=== PATIENT | male | born 1950 | race Caucasian/White ===

== ENCOUNTER 2017-10-27 13:06 | Inpatient (IN) | payer MEDICAID, OTHER ==
[~2017-10-27] VITALS: Ht 172.7 cm; Wt 68.0 kg
[2017-10-27 13:15] VITALS: BP 138/76
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
[2017-10-27] MEDS ORDERED: NACL 0.9% 1,000 ML IV ONE (13:55)
[2017-10-27] MEDS ORDERED: LORazepam 2 MG/ML VIAL IVP ONE (13:55)
[2017-10-27] MEDS ORDERED: LIDOCAINE 1% 500 MG/50 ML VIAL INJ SCH (13:55)
--- NOTE | 2017-10-27 14:05 | NUR ---
PT TO CT SCAN VIA [facility].
--- NOTE | 2017-10-27 14:22 | NUR ---
PT BACK FROM CT SCAN, NO CHNAGES IN CONDITION, NO COMPLIANTS AT THIS TIME. VSS. RESP EVEN AND UNLABORED, ON RA@98%.
[2017-10-27 14:36] LABS: BASOPHILS % (AUTO) 0.4 % (0.0-2.0); EOSINOPHILS % (AUTO) 0.1 % (0.0-4.0); HEMATOCRIT 38.5 % (36-52); HEMOGLOBIN 13.3 g/dL (12.0-18.0); MEAN CORPUSCULAR HEMOGLOBIN 33 pg (27-31); MEAN CORPUSCULAR HGB CONC 35 g/dL (33-37); MONOCYTES # (AUTO) 0.5 K/uL (0.8-1.0); MONOCYTES % (AUTO) 6.7 % (1.7-9.3); NEUTROPHILS # (AUTO) 5.4 K/uL (1.8-7.7); NEUTROPHILS % (AUTO) 78.8 % (42.2-75.2); PLATELET COUNT (AUTO) 187 K/uL (140-450); RED BLOOD CELL COUNT(AUTO) 4.09 MIL/uL (4.20-6.10); RED CELL DISTRIBUTION WIDTH 14.2 % (11.6-13.7); WHITE BLOOD COUNT (AUTO) 6.8 K/uL (4.8-10.8)
[2017-10-27 14:58] LABS: ALBUMIN 3.6 g/dL (3.4-5.0); ANION GAP 13.2 (8-16); CARBON DIOXIDE 22.4 mmol/L (21-32); CREATININE 0.4 mg/dL (0.7-1.3); POTASSIUM 3.6 mmol/L (3.5-5.1); TOTAL BILIRUBIN 0.6 mg/dL (0.0-1.0)
[2017-10-27 14:59] LABS: PROTHROMBIN TIME 9.5 secs (10.8-13.4)
--- NOTE | 2017-10-27 15:11 | NUR ---
PT WITH EYES CLOSED, IN NAD. RESP EVEN AND UNLBAORED, VSS. CLAUDIA SOLORZANO MD LAC REPAIR,LIDOCAINE AT BEDSIDE.
[2017-10-27] MEDS ORDERED: LORazepam 2 MG/ML VIAL IVP PRN (15:50)
[2017-10-27] MEDS ORDERED: MULTIVITAMIN-12 10 ML, THIAMINE 100 MG, MAGNESIUM SULFATE 50% 2,000 MG, FOLIC ACID 5 MG... IV ONE ×5 (15:50)
[2017-10-27] MEDS ORDERED: ACETAMINOPHEN 325 MG TAB PO PRN (15:50)
[2017-10-27] MEDS ORDERED: ONDANSETRON 4 MG/2 ML VIAL IVP PRN (15:50)
--- NOTE | 2017-10-27 16:02 | NUR ---
LAC REPAIR AT BEDSIDE BY DR HAIRSTON
--- NOTE | 2017-10-27 16:38 | NUR ---
Patient will be admitted to care of DR HERNANDEZ. Admited toTELE Will go to room. Belongings list completed. Report to .
--- NOTE | 2017-10-27 16:45 | NUR ---
ADMITTED PT FROM ER BY OPAL, RECEIVED REPORT FROM LEXA. PT AWAKE, ALERT BUT EPISODES OF CONFUSION. MUMBLING, ON ROOM AIR, NO S/S OF RESPIRATORY DISTRESS NOTED. PT HAS LACERATION TO FOREHEAD. WRAPPED WITH GAUZE. IV TO RIGHT FOREARM # 20, INTACT AND PATENT. PT ABLE TO MOVE ALL HIS EXTREMITIES WITH MILD WEAKNESS NOTED. ORIENTED PT ENVIRONMENT, CALL LIGHT IN REACH, HOB ELEVATED 30 DEGREES WITH LOW BED POSITION, MRSA NARES SWAB DONE, WILL CONTINUE TO MONITOR.
[2017-10-27 17:00] VITALS: BP 135/76
--- NOTE | 2017-10-27 17:30 | NUR ---
MADE CHARGE NURSE AWARE FOR THE IV "BANANA BAG" NOT GIVEN YET. PHARMACY LEFT, CHARGE NURSE WILL CALL [employer] ADMINISTRATOR.
[2017-10-27] MEDS: NACL 0.9% 1,000 ML IV SCH (18:00)
[2017-10-27] MEDS ORDERED: FOLIC ACID 5 MG/ML SYR ONE ×2 (18:04→18:06)
--- NOTE | 2017-10-27 18:10 | NUR ---
PT IS MORE AWAKE AT THIS MOMENT, FEED PT , PT ATE MODERATE AMOUNT OF FOOD, PT USE URINAL, HAD URINE TOTAL OUT PUT IN MY SHIFT 600 MLS.
[2017-10-27] MEDS ORDERED: MAGNESIUM SULFATE 50% 1000 MG/2 ML VIAL IV ONE (18:15)
[2017-10-27] MEDS ORDERED: THIAMINE 200 MG/2 ML VIAL ONE (18:17)
[2017-10-27] MEDS ORDERED: MULTIVITAMIN-12 10 ML VIAL IV ONE (18:19)
--- NOTE | 2017-10-27 19:20 | NUR ---
RECEIVED REPORT FROM DAY SHIFT NURSE AT PT BEDSIDE. PT IN STABLE CONDITION. PT IS ASLEEP. IV ACCESS IN R FA 20G WITH IVF RUNNING PER MD ORDERS. IV IS PATENT AND INTACT. PT IS ON RA. BANDAGE COVERING LACERATION TO L FOREHEAD. BRUISING TO LEFT EYE. BED IS LOCKED, LOW POSITION AND SIDE RAILS UP X2. BOARD UPDATED. CALL LIGHT WITHIN REACH. WILL CONTINUE TO MONITOR PT.
--- NOTE | 2017-10-27 20:33 | NUR ---
STARTED ORDERED BANANA BAG. PT ASLEEP BUT AROUSABLE. WILL CONTINUE TO MONITOR PT.
--- NOTE | 2017-10-27 23:10 | NUR ---
PT STILL ASLEEP IN BED. NO SIGNS OF DISTRESS. BANANA BAG STILL INFUSING. WILL CONTINUE TO MONITOR.
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
[2017-10-28] VITALS: BP_SYST 127; BP_SYST 151; BP_DIAS 75; BP_DIAS 79
[2017-10-28] MEDS: NACL 0.9% 1,000 ML IV SCH (01:50)
--- NOTE | 2017-10-28 02:23 | NUR ---
PT ASLEEP IN BED. NO SIGNS OR SYMPTOMS OF DISTRESS. WILL CONTINUE TO MONITOR PT.
--- NOTE | 2017-10-28 05:22 | NUR ---
PT NOW AWAKE IN BED WATCHING TV. NO SIGNS OF DISTRESS. PT HAS NO C/O PAIN. WILL CONTINUE TO MONITOR.
--- NOTE | 2017-10-28 07:11 | NUR ---
ENDORSED PT TO DAY SHIFT NURSE FOR CONTINUITY OF CARE. PT IN STABLE CONDITION.
--- NOTE | 2017-10-28 07:12 | NUR ---
RECEIVED REPORT FROM PM NURSE AT THE BEDSIDE. PT ALERT AND AWAKE. INTRODUCED SELF AND UPDATED BOARD OF PT. PT HAS IVF INFUSING AT 100ML/HR. IV ON RT AC 20 G. PT ADMITTED WITH DX OF ALCOHOL INTOXICATION. PER PM NURSE PT ADMINISTERED BANANA BAG ALREADY. NO SIGN OF DISTRESS NOTED. WILL CONTINUE TO MONITOR PT.
[2017-10-28 08:00] VITALS: BP 103/73
[2017-10-28 08:05] LABS: HEMATOCRIT 40.4 % (36-52); HEMOGLOBIN 13.8 g/dL (12.0-18.0); MEAN CORPUSCULAR HEMOGLOBIN 32 pg (27-31); MEAN CORPUSCULAR HGB CONC 34 g/dL (33-37); MEAN CORPUSCULAR VOLUME 95.3 fL (80-94); PLATELET COUNT (AUTO) 173 K/uL (140-450); RED BLOOD CELL COUNT(AUTO) 4.24 MIL/uL (4.20-6.10); RED CELL DISTRIBUTION WIDTH 14.1 % (11.6-13.7); WHITE BLOOD COUNT (AUTO) 8.6 K/uL (4.8-10.8)
[2017-10-28 08:18] LABS: BASOPHILS % (MANUAL) 0 % (0-2); EOSINOPHILS % (MANUAL) 0 % (0-4); LYMPHOCYTES % (MANUAL) 13 % (20-46); MONOCYTES % (MANUAL) 9 % (5-12)
[2017-10-28 08:23] LABS: ALBUMIN 3.5 g/dL (3.4-5.0); ANION GAP 11.3 (8-16); CARBON DIOXIDE 23.7 mmol/L (21-32); CREATININE 0.5 mg/dL (0.7-1.3); PHOSPHORUS 2.7 mg/dL (2.5-4.9); TOTAL BILIRUBIN 1.1 mg/dL (0.0-1.0)
--- NOTE | 2017-10-28 09:00 | NUR ---
ADMINISTERED MEDS ORDERED TO PT. PT ON FLUID RESTRICTION, PO , 1000 ML/HR. IVF CHANGED TO D5, 0.45 NS @ 75 ML/HR. EXPLAINED HIM THAT HIS SODIUM LEVEL IS LOW. NEEDS TO DRINK LESS WATER. VERBALIZED UNDERSTANDING, PT EXPLAINED TOTAL FLUID THAT HE CAN TAKE IS ONLY 1000 ML/24 HR AND HIM OUTPUT WILL BE CLOSELY MONITOR WELL. NO SIGN OF DISTRESS NOTED. WILL CONTINUE TO MONITOR PT.
[2017-10-28] MEDS: ENOXAPARIN 40 MG/0.4 ML SYR SUBQ SCH (09:43)
--- NOTE | 2017-10-28 12:00 | NUR ---
CHECKED ON PT. LYING ON HIS BED. WATCHING TV. NO SIGN OF DISTRESS. STATES THAT HE HAS NOT DRANK SINCE HE WAS EXPLAINED ABOUT LOW SODIUM AND FLUID RESTRICTION. WILL CONTINUE TO MONITOR PT.
[2017-10-28] MEDS: DEXT 5% /NACL 0.9% 1,000 ML IV SCH (12:02)
--- NOTE | 2017-10-28 14:30 | NUR ---
CHECKEDON PT. LYING ON HIS BED. ASKING IF HE WILL BE DISCHARGED TODAY. STATES THAT HE NEEDS BUS PASS IF WILL BE DISCHARGED TODAY. EXPLAINED HIM THAT WILL INFORM HIM SOON HIS DISCHARGE ORDER IS AVAILABLE. VERBALSIED UNDERSTANDING OF TEACHING. WILL CONTINUE TO MONITOR PT.
[2017-10-28 16:00] VITALS: BP 155/83
--- NOTE | 2017-10-28 16:30 | NUR ---
CHECKED ON PT. WATCHING TV. NO SIGN OF DISTRESS. EMPTIED HIS URINAL. PLACED CALL LIGHT WITHIN PT REACH. INOFRMED TO USE CALL LIGHT FOR ANY HELP. VERBALIZED UNDERSTANDING. WILL CONTINUE TO MONITOR PT.
--- NOTE | 2017-10-28 19:10 | NUR ---
RECEIVED REPORT FROM DAY SHIFT NURSE AT PT BEDSIDE. PT IN STABLE CONDITION. PT IS A/O X4 WATCHING TV IN BED. PT ON RA. PT HAS LACERATION TO LEFT SIDE OF FOREHEAD COVERED WITH DRESSING. IV ACCESS IN R UA 20G WITH IVF RUNNING PER MD ORDERS. PT IS ON STRICT I & O. SIGN POSTED ON DOOR. PT HAS NO C/O PAIN AT THIS TIME. BED IS LOCKED, LOW POSITION WITH SIDE RAILS UP X2. BOARD UPDATED. CALL LIGHT IS WITHIN REACH. WILL CONTINUE TO MONITOR PT.
--- NOTE | 2017-10-28 19:10 | NUR ---
ENDORSED PT TO PM NURSE AT THE BEDSIDE FOR CONTINUITY OF CARE. PT IN STABLE CONDITION.
--- NOTE | 2017-10-28 22:01 | NUR ---
PT RESTING COMFORTABLY IN BED WATCHING TV. ALL NEEDS ARE MET AT THIS TIME. WILL CONTINUE TO MONITOR.
[2017-10-29] VITALS: BP 151/79
--- NOTE | 2017-10-29 00:14 | NUR ---
PT SLEEPING IN BED. NO SIGNS OR SYMPTOMS OF DISTRESS. WILL CONTINUE TO MONITOR.
[2017-10-29] MEDS: DEXT 5% /NACL 0.9% 1,000 ML IV SCH (02:28)
--- NOTE | 2017-10-29 02:28 | NUR ---
NEW BAG OF IVF STARTED. PT ASLEEP IN BED. NO SIGNS OF DISTRESS. WILL CONTINUE TO MONITOR.
--- NOTE | 2017-10-29 05:11 | NUR ---
PT ASLEEP IN BED. NO S/SX OF DISTRESS. WILL CONTINUE TO MONITOR.
--- NOTE | 2017-10-29 07:20 | NUR ---
ENDORSED PT TO DAY SHIFT NURSE FOR CONTINUITY OF CARE. PT IN STABLE CONDITION.
--- NOTE | 2017-10-29 07:21 | NUR ---
RECEIVED REPORT FROM PM NURSE AT THE BEDSIDE. PT ON FLUID RESTRICTION PO 100 ML/HR. IV 20 G ON RT UA. IVF D5 WITH 0.9%V NS INFUSING. NO SIGN ON DISTRESS. PLACED CALL LIGHT WITHIN PT REACH. PT AWAKE AND SPEAKING WITH NURSE. WILL CONTINUE TO MONITOR PT.
[2017-10-29 07:41] LABS: BASOPHILS % (AUTO) 0.2 % (0.0-2.0); EOSINOPHILS % (AUTO) 0.5 % (0.0-4.0); HEMATOCRIT 39.6 % (36-52); HEMOGLOBIN 14.2 g/dL (12.0-18.0); LYMPHOCYTES # (AUTO) 0.7 K/uL (2.0-11.5); LYMPHOCYTES % (AUTO) 7.2 % (20.5-51.1); MEAN CORPUSCULAR HEMOGLOBIN 34 pg (27-31); MEAN CORPUSCULAR HGB CONC 36 g/dL (33-37); MEAN CORPUSCULAR VOLUME 93.8 fL (80-94); MONOCYTES # (AUTO) 0.9 K/uL (0.8-1.0); MONOCYTES % (AUTO) 9.3 % (1.7-9.3); NEUTROPHILS # (AUTO) 7.7 K/uL (1.8-7.7); NEUTROPHILS % (AUTO) 82.8 % (42.2-75.2); PLATELET COUNT (AUTO) 191 K/uL (140-450); RED BLOOD CELL COUNT(AUTO) 4.22 MIL/uL (4.20-6.10); RED CELL DISTRIBUTION WIDTH 14.2 % (11.6-13.7); WHITE BLOOD COUNT (AUTO) 9.3 K/uL (4.8-10.8)
[2017-10-29 08:00] VITALS: BP 156/86
[2017-10-29 08:00] LABS: ALBUMIN 3.1 g/dL (3.4-5.0); ANION GAP 11.3 (8-16); CARBON DIOXIDE 25.6 mmol/L (21-32); CREATININE 0.5 mg/dL (0.7-1.3); MAGNESIUM 1.9 mg/dL (1.8-2.4); POTASSIUM 3.9 mmol/L (3.5-5.1); TOTAL BILIRUBIN 0.9 mg/dL (0.0-1.0)
[2017-10-29] MEDS ORDERED: IBUP-2218 PO (08:55)
[2017-10-29] MEDS ORDERED: MULTIVITAMIN/MINERALS 1 TAB PO SCH (09:00)
[2017-10-29] MEDS ORDERED: THIAMINE 100 MG TAB PO SCH (09:00)
[2017-10-29] MEDS ORDERED: FOLIC ACID 1 MG TAB PO SCH (09:00)
--- NOTE | 2017-10-29 09:00 | NUR ---
ADMINISTERED MEDS ORDERED TO PT. TOLERATED WELL. PT STATES THAT DOC TALKED TO HIM AND INFORMED HIM ABOUT HIS DISCHARGE PLAN. INFORMED THAT WILL WORK ON HIS DC PAPER SOON DONE WITH PASSING AM MEDS TO PTS. VERBALSIED UNDERSTANDING OF TEACHING. WILL CONTINUE TO MONITOR PT.
[2017-10-29] MEDS: ENOXAPARIN 40 MG/0.4 ML SYR SUBQ SCH (09:07)
--- NOTE | 2017-10-29 10:00 | NUR ---
CHECKED ON PT. ASSESSED HIS PAIN. STATES THAT HIS PAIN IS REDUCED TO 3. TOLERABLE AT THIS POINT . PT INFORMED WORKING ON HIS DC PAPER. CHANGED THE BANDAGE ON HIS FOREHEAD AND HIS LFT ELBOW. NO SIGN OF DISTRESS. WILL CONTINUE TO MONITOR PT.
--- NOTE | 2017-10-29 10:48 | NUR ---
PATIENT HAS BEEN SCREENED AND CATEGORIZED LOW NUTRITION RISK. PATIENT WILL BE SEEN WITHIN 7 DAYS OF ADMISSION. 11/03/17 MICHELLE MALIK MBA, RD
--- NOTE | 2017-10-29 12:30 | NUR ---
PT DISCHARGED. TOOK ALL HIS BELONGINGS FROM HIS BEDSIDE DRAWER. ASKED T-SHIRT FROM SECURITY. GAVE HIS ALL DISCHARGE INSTRUCTION. ASKED PT TO VISIT HIS PCP WITHIN 3-5 DAYS OF DISCHARGE. PT STATES TO SEE HIS PCP ON SUNDAY. PT IN STABLE CONDITION AT THE TIME OF LEAVING. HAS BM . GAVE HIM BUS PASS BEFORE HE LEFT THE HOSPITAL. PT WAS DROPPED OFF IN FRONT LOBBY DOOR IN WHEEL CHAIR. PT STABLE AND AMBULATORY.
--- NOTE | 2017-10-30 08:13 | NUR ---
FAXED RETRO REVIEW TO [facility] NO DISCHARGE SUMMARY
== END 2017-10-29 12:30 | disposition home or self-care (01) | DRG 115 ==
LOC: MED 13:06 → MTU 15:54
PROVIDERS: ADMIT Internal Medicine; ATTEND Internal Medicine
PROC: 0HQ1XZZ Repair Face Skin, External Approach (ICD-10-PCS; principal; 2017-10-27)
PROC: 3E0234Z Introduction of Serum, Toxoid and Vaccine into Muscle, Percutaneous Approach (ICD-10-PCS; 2017-10-27)
DX: S09.90XA Unspecified injury of head, initial encounter (principal); E87.0 Hyperosmolality and hypernatremia; F10.129 Alcohol abuse with intoxication, unspecified; S01.112A Laceration without foreign body of left eyelid and periocular area, initial encounter; S60.415A Abrasion of left ring finger, initial encounter; V19.88XA Pedal cyclist (driver) (passenger) injured in other specified transport accidents, initial encounter; Y93.89 Activity, other specified; Y92.89 Other specified places as the place of occurrence of the external cause; Y99.8 Other external cause status; Z59.0 Homelessness; Y90.8 Blood alcohol level of 240 mg/100 ml or more; Z23 Encounter for immunization
CPT/HCPCS: 12013; 36415; 70450; 70486; 72125; 80053; 83735; 83930; 84100; 84484; 85025; 85610; 85730; 87081; 90471; 90715; 93005; 96361; 96374; 99291; A9153; G0482; J1650; J2001; J2060; J3411; J3475; J3490; J7030; J7042

== ENCOUNTER 2022-01-28 21:45 | Emergency (ER) | payer MEDICARE, OTHER ==
[~2022-01-28] VITALS: Ht 177.8 cm; Wt 72.6 kg
[2022-01-28 21:45] VITALS: BP 128/65
[~2022-01-28 21:45] MED LIST: IBUP-2218 PO
--- NOTE | 2022-01-28 21:49 | NUR ---
PT OFFLOADED TO [facility]
[2022-01-28 23:15] VITALS: BP 119/78
--- NOTE | 2022-01-28 23:15 | NUR ---
Patient discharged with v/s stable. Written and verbal after care instructions given and explained. Patient verbalized understanding. Ambulatory with steady gait. All questions addressed prior to discharge. Advised to follow up with PMD.
== END 2022-01-28 23:15 | disposition home or self-care (01) ==
LOC: MED 21:45
DX: F10.90 Alcohol use, unspecified, uncomplicated (principal); Y90.9 Presence of alcohol in blood, level not specified
CPT/HCPCS: 99283

== ENCOUNTER 2023-04-17 13:01 | Emergency (ER) | payer MEDICARE, OTHER ==
[~2023-04-17] VITALS: Ht 175.3 cm; Wt 80.3 kg
[2023-04-17 13:03] VITALS: BP 144/75; PULSE 92; RESP 18; TEMP 97.9; O2SAT 98
[2023-04-17 13:15] VITALS: O2SAT 98
[2023-04-17 15:03] VITALS: BP 138/74; PULSE 89; RESP 16; TEMP 97.9; O2SAT 99
== END 2023-04-17 15:03 | disposition home or self-care (01) ==
LOC: MED 13:01
DX: F10.129 Alcohol abuse with intoxication, unspecified (principal); Z59.00 Homelessness unspecified; Z79.899 Other long term (current) drug therapy; Y90.9 Presence of alcohol in blood, level not specified
CPT/HCPCS: 99283

== ENCOUNTER 2023-04-17 18:37 | Emergency (ER) | payer MEDICARE, OTHER ==
[~2023-04-17] VITALS: Ht 170.2 cm; Wt 70.3 kg
[2023-04-17 18:38] VITALS: BP 113/80; PULSE 82; RESP 20; TEMP 97.7; O2SAT 96
== END 2023-04-17 21:36 | disposition left against medical advice (07) ==
LOC: MED 18:37
DX: F10.129 Alcohol abuse with intoxication, unspecified (principal); Y90.9 Presence of alcohol in blood, level not specified
CPT/HCPCS: 99283

== ENCOUNTER 2023-04-18 01:10 | Emergency (ER) | payer MEDICARE, OTHER ==
[~2023-04-18] VITALS: Ht 175.3 cm; Wt 68.0 kg
[2023-04-18 01:20] VITALS: BP 148/86; PULSE 86; RESP 18; TEMP 97.2; O2SAT 100
== END 2023-04-18 05:55 | disposition home or self-care (01) ==
LOC: MED 01:10
DX: F10.129 Alcohol abuse with intoxication, unspecified (principal); Z79.899 Other long term (current) drug therapy; Y90.9 Presence of alcohol in blood, level not specified
CPT/HCPCS: 99283

== ENCOUNTER 2023-04-18 18:01 | Emergency (ER) | payer MEDICARE, OTHER ==
[~2023-04-18] VITALS: Ht 175.3 cm; Wt 68.0 kg
[2023-04-18 18:24] VITALS: BP 113/59; PULSE 80; RESP 18; TEMP 97.7; O2SAT 100
[2023-04-18] MEDS: THIAMINE 100 MG TAB PO ONE (18:47)
[2023-04-18] MEDS: ONDANSETRON 4 MG ODT PO ONE (18:48)
[2023-04-18] MEDS: MULTIVITAMIN 1 TAB PO SCH (18:48)
[2023-04-18] MEDS: NACL 0.9% 1,000 ML IV ONE (19:09)
[2023-04-18 19:24] VITALS: O2SAT 98
[2023-04-18 19:24] LABS: ANION GAP 16.4 (8-16); CALCIUM 9.3 mg/dL (8.5-10.1); CARBON DIOXIDE 23.6 mmol/L (21-32); CREATININE 0.7 mg/dL (0.6-1.3)
[2023-04-18 19:32] LABS: ALANINE AMINOTRANSFERASE 27 U/L (12-78); ALBUMIN 3.7 g/dL (3.4-5.0); ALKALINE PHOSPHATASE 83 U/L (50-136); ASPARTATE AMINOTRANSFERASE 42 U/L (15-37); BASOPHILS % (AUTO) 0.2 % (0.0-2.0); BILIRUBIN,DIRECT 0.6 mg/dL (0.0-0.3); CREATINE KINASE, TOTAL 447 U/L (39-308); HEMATOCRIT 36.6 % (36-52); HEMOGLOBIN 12.7 g/dL (12.0-18.0); LYMPHOCYTES # (AUTO) 0.8 K/uL (2.0-11.5); LYMPHOCYTES % (AUTO) 5.7 % (20.5-51.1); MAGNESIUM 1.9 mg/dL (1.8-2.4); MEAN CORPUSCULAR HEMOGLOBIN 30 pg (27-31); MEAN CORPUSCULAR HGB CONC 35 g/dL (33-37); MONOCYTES # (AUTO) 0.8 K/uL (0.8-1.0); MONOCYTES % (AUTO) 5.9 % (1.7-9.3); NEUTROPHILS # (AUTO) 11.7 K/uL (1.8-7.7); NEUTROPHILS % (AUTO) 88.2 % (42.2-75.2); PHOSPHORUS 3.6 mg/dL (2.5-4.9); PLATELET COUNT (AUTO) 320 K/uL (140-450); RED BLOOD CELL COUNT(AUTO) 4.21 MIL/uL (4.20-6.10); RED CELL DISTRIBUTION WIDTH 15.6 % (11.6-13.7); TOTAL BILIRUBIN 1.5 mg/dL (0.0-1.0); TOTAL PROTEIN, SERUM 9.1 g/dL (6.4-8.2); WHITE BLOOD COUNT (AUTO) 13.3 K/uL (4.8-10.8)
[2023-04-18 19:33] LABS: ACETAMINOPHEN < 0.5 ug/ml (10-30); ALCOHOL, BLOOD < 3 mg/dL (<10); SALICYLATE < 2.8 mg/dL (2.8-20.0)
[2023-04-18] MEDS: HALOPERIDOL IM 5 MG/ML VIAL IM ONE (20:27)
[2023-04-18] MEDS: LORazepam 2 MG/ML VIAL IM STA (20:27)
[2023-04-18 20:52] LABS: INR 1.01 (0.8-1.2); PARTIAL THROMBOPLASTIN TIME 28.1 secs (22-35.6); PROTHROMBIN TIME 10.6 secs (10.8-13.4)
[2023-04-18] MEDS ORDERED: levETIRAcetam 100 MG/ML VIAL IV ONE (21:04)
[2023-04-18] MEDS: levETIRAcetam 1,000 MG in NACL 0.9% 100 ML IV ONE ×2 (21:26)
[2023-04-18 21:31] VITALS: O2SAT 97
[2023-04-18] MEDS: NACL 3% 500 ML IV ONE (21:40)
[2023-04-18 23:29] VITALS: BP 160/59; PULSE 95; RESP 19; TEMP 97.8; O2SAT 99
== END 2023-04-18 23:29 | disposition short-term general hospital (02) ==
LOC: MED 18:01
DX: S06.6X0A Traumatic subarachnoid hemorrhage without loss of consciousness, initial encounter (principal); S06.5X0A Traumatic subdural hemorrhage without loss of consciousness, initial encounter; G91.1 Obstructive hydrocephalus; R41.82 Altered mental status, unspecified; E87.1 Hypo-osmolality and hyponatremia; F10.10 Alcohol abuse, uncomplicated; G93.89 Other specified disorders of brain; N50.89 Other specified disorders of the male genital organs; Z79.899 Other long term (current) drug therapy; Y90.0 Blood alcohol level of less than 20 mg/100 ml; X58.XXXA Exposure to other specified factors, initial encounter; Y92.89 Other specified places as the place of occurrence of the external cause; Y93.89 Activity, other specified; Y99.8 Other external cause status
CPT/HCPCS: 36415; 70450; 72125; 80048; 80076; 82550; 82553; 83735; 84100; 84484; 85025; 85610; 85730; 93005; 96361; 96365; 99291; 99292; G0480; G0482; J1630; J1953; J3490; J7030; Q0162; J2060